=== PATIENT | female | born 1935 | race American Indian/Alaskan Native ===

== ENCOUNTER 2023-02-27 21:25 | Inpatient (IN) | payer MEDICARE, MEDICAID ==
[2023-02-27] MEDS ORDERED: Lactated Ringers 1,000 ML IV STA (21:54)
[2023-02-27] MEDS ORDERED: Ondansetron 4 MG Tab.DIS PO PRN (21:54)
[2023-02-27] MEDS ORDERED: Polyethylene Glycol 3350 Powder 17 GM Packet PO PRN (21:54)
[2023-02-27] MEDS ORDERED: Docusate Sodium 100 MG Cap PO PRN (21:54)
[2023-02-27] MEDS ORDERED: Acetaminophen 325 MG Tab PO PRN (21:54)
[2023-02-27] MEDS ORDERED: Potassium Chloride 10 MEQ Tab.ER PO ONE (22:03)
[2023-02-27] MEDS ORDERED: diphenhydrAMINE 25 MG Cap PO PRN (22:27)
[2023-02-27] MEDS ORDERED: cefTRIAXone 1 GM Vial IVPUSH SCH (22:30)
[2023-02-27] MEDS: Menthol/Zinc Oxide Ointment 113 GM Tube TOP SCH (23:05)
[2023-02-28] MEDS: Pantoprazole 40 MG Tab.CR PO SCH (07:11)
[2023-02-28 07:46] LABS: BASOPHILS ABSOLUTE AUTO 0.02 10^3/uL (0.00-0.50); BASOPHILS PERCENT AUTO 0.3 % (0-1); EOSINOPHILS ABSOLUTE AUTO 0.13 10^3/uL (0.00-1.50); EOSINOPHILS PERCENT AUTO 1.8 % (0-6); HEMATOCRIT 29.1 % (37.0-47.0); HEMOGLOBIN 9.2 g/dL (12.0-16.0); IMMATURE GRAN ABSOLUTE AUTO 0.02 10^3/uL (0.00-0.49); IMMATURE GRAN PERCENT AUTO 0.3 % (0.0-4.9); LYMPHOCYTES PERCENT AUTO 18.4 % (24-44); MEAN CORPUSCULAR HEMOGLOBIN 29.7 pg (27.0-32.0); MEAN CORPUSCULAR HGB CONC 31.6 g/dL (32.0-36.0); MEAN CORPUSCULAR VOLUME 93.9 fL (83.0-97.0); MONOCYTES ABSOLUTE AUTO 0.68 10^3/uL (0.00-1.50); MONOCYTES PERCENT AUTO 9.6 % (0-10); NEUTROPHILS ABSOLUTE AUTO 4.93 x10^3/uL (1.80-8.00); NEUTROPHILS PERCENT AUTO 69.6 % (41-71); PLATELET COUNT,PLT 210 10^3/uL (150-400); WHITE BLOOD CELL COUNT,WBC 7.1 10^3/uL (4.0-11.0)
[2023-02-28 08:00] LABS: BILIRUBIN TOTAL 0.4 mg/dL (0.0-1.0); CALCIUM 8.1 mg/dL (8.4-10.1); EST CRCL DRUG DOSING (CG) 34.23 mL/min; MAGNESIUM 1.6 mg/dL (1.8-2.4); POTASSIUM,K 3.3 mEq/L (3.5-5.0); PROTEIN TOTAL,TP 5.1 g/dL (6.4-8.2)
[2023-02-28] MEDS: Potassium Chloride 10 MEQ Tab.ER PO SCH ×2 (08:04→17:38)
[2023-02-28] MEDS: Cholecalciferol (Vitamin D3) 25 MCG Tab PO SCH (08:04)
[2023-02-28] MEDS: Menthol/Zinc Oxide Ointment 113 GM Tube TOP SCH ×2 (08:05→19:35)
[2023-02-28] MEDS: Multivitamin Tab PO SCH (08:05)
[2023-02-28] MEDS ORDERED: Magnesium Sulfate/Water 2 GM in Premix Bag 1 BAG IV ONE (11:15)
[2023-02-28] MEDS ORDERED: Albumin 25% 25 GM in Premix Bag 1 BAG IV ONE (12:00)
[2023-02-28] MEDS: atorvaSTATin 20 MG Tab PO SCH (19:31)
[2023-02-28] MEDS: cefTRIAXone 1 GM Vial IVPUSH SCH (21:16)
[2023-03-01 07:45] LABS: CALCIUM 7.9 mg/dL (8.4-10.1); CREATININE 1.1 mg/dL (0.6-1.0); EST CRCL DRUG DOSING (CG) 31.11 mL/min; MAGNESIUM 1.9 mg/dL (1.8-2.4)
[2023-03-01 07:46] LABS: BASOPHILS ABSOLUTE AUTO 0.03 10^3/uL (0.00-0.50); BASOPHILS PERCENT AUTO 0.4 % (0-1); EOSINOPHILS ABSOLUTE AUTO 0.12 10^3/uL (0.00-1.50); EOSINOPHILS PERCENT AUTO 1.5 % (0-6); HEMATOCRIT 28.8 % (37.0-47.0); HEMOGLOBIN 9.2 g/dL (12.0-16.0); IMMATURE GRAN ABSOLUTE AUTO 0.02 10^3/uL (0.00-0.49); IMMATURE GRAN PERCENT AUTO 0.2 % (0.0-4.9); LYMPHOCYTES PERCENT AUTO 16.1 % (24-44); MEAN CORPUSCULAR HEMOGLOBIN 30.1 pg (27.0-32.0); MEAN CORPUSCULAR HGB CONC 31.9 g/dL (32.0-36.0); MEAN CORPUSCULAR VOLUME 94.1 fL (83.0-97.0); MONOCYTES ABSOLUTE AUTO 0.72 10^3/uL (0.00-1.50); MONOCYTES PERCENT AUTO 8.9 % (0-10); NEUTROPHILS ABSOLUTE AUTO 5.88 x10^3/uL (1.80-8.00); NEUTROPHILS PERCENT AUTO 72.9 % (41-71); PLATELET COUNT,PLT 210 10^3/uL (150-400); RED BLOOD CELL COUNT 3.06 x10^6/uL (4.00-5.50); WHITE BLOOD CELL COUNT,WBC 8.1 10^3/uL (4.0-11.0)
[2023-03-01] MEDS: Potassium Chloride 10 MEQ Tab.ER PO SCH ×2 (07:58→17:34)
[2023-03-01] MEDS: Multivitamin Tab PO SCH (07:59)
[2023-03-01] MEDS: Pantoprazole 40 MG Tab.CR PO SCH (07:59)
[2023-03-01] MEDS: Cholecalciferol (Vitamin D3) 25 MCG Tab PO SCH (07:59)
[2023-03-01] MEDS: Menthol/Zinc Oxide Ointment 113 GM Tube TOP SCH ×2 (08:00→19:34)
[2023-03-01] MEDS: Calcium Acetate 667 MG Cap PO SCH (17:34)
[2023-03-01] MEDS: atorvaSTATin 20 MG Tab PO SCH (19:34)
[2023-03-01] MEDS: cefTRIAXone 1 GM Vial IVPUSH SCH (20:17)
[2023-03-02] MEDS: Pantoprazole 40 MG Tab.CR PO SCH (06:49)
[2023-03-02 07:27] LABS: BASOPHILS ABSOLUTE AUTO 0.01 10^3/uL (0.00-0.50); BASOPHILS PERCENT AUTO 0.2 % (0-1); EOSINOPHILS ABSOLUTE AUTO 0.18 10^3/uL (0.00-1.50); EOSINOPHILS PERCENT AUTO 2.8 % (0-6); HEMATOCRIT 29.1 % (37.0-47.0); HEMOGLOBIN 9.2 g/dL (12.0-16.0); IMMATURE GRAN ABSOLUTE AUTO 0.03 10^3/uL (0.00-0.49); IMMATURE GRAN PERCENT AUTO 0.5 % (0.0-4.9); LYMPHOCYTES ABSOLUTE AUTO 1.33 10^3/uL (0.60-5.00); LYMPHOCYTES PERCENT AUTO 20.7 % (24-44); MEAN CORPUSCULAR HEMOGLOBIN 29.9 pg (27.0-32.0); MEAN CORPUSCULAR HGB CONC 31.6 g/dL (32.0-36.0); MEAN CORPUSCULAR VOLUME 94.5 fL (83.0-97.0); MONOCYTES ABSOLUTE AUTO 0.48 10^3/uL (0.00-1.50); MONOCYTES PERCENT AUTO 7.5 % (0-10); NEUTROPHILS ABSOLUTE AUTO 4.39 x10^3/uL (1.80-8.00); NEUTROPHILS PERCENT AUTO 68.3 % (41-71); PLATELET COUNT,PLT 183 10^3/uL (150-400); RED BLOOD CELL COUNT 3.08 x10^6/uL (4.00-5.50); WHITE BLOOD CELL COUNT,WBC 6.4 10^3/uL (4.0-11.0)
[2023-03-02 07:39] LABS: CALCIUM 8.1 mg/dL (8.4-10.1); CREATININE 0.9 mg/dL (0.6-1.0); EST CRCL DRUG DOSING (CG) 38.03 mL/min; MAGNESIUM 1.7 mg/dL (1.8-2.4); POTASSIUM,K 4.2 mEq/L (3.5-5.0)
[2023-03-02] MEDS: Menthol/Zinc Oxide Ointment 113 GM Tube TOP SCH (08:05)
[2023-03-02] MEDS: Potassium Chloride 10 MEQ Tab.ER PO SCH (08:27)
[2023-03-02] MEDS: Cholecalciferol (Vitamin D3) 25 MCG Tab PO SCH (08:28)
[2023-03-02] MEDS: Calcium Acetate 667 MG Cap PO SCH (08:29)
[2023-03-02] MEDS: Multivitamin Tab PO SCH (08:30)
[2023-03-02 10:30] VITALS: BP 122/66; PULSE 85
[2023-03-02 10:58] LABS: APPEARANCE,URINE SLIGHTLY CLOUDY (CLEAR); BILIRUBIN,URINE NEGATIVE (NEGATIVE); COLOR,URINE YELLOW (YELLOW); GLUCOSE,URINE NEGATIVE (NEGATIVE); KETONES,URINE NEGATIVE (NEGATIVE); LEUKOCYTE ESTERASE,URINE LARGE (NEGATIVE); NITRITE,URINE NEGATIVE (NEGATIVE); OCCULT BLOOD,URINE SMALL (NEGATIVE); PROTEIN,URINE NEGATIVE (NEGATIVE); UROBILINOGEN,URINE 0.2 EU/dL (0.2-1.0)
[2023-03-02 11:12] LABS: BACTERIA,URINE FEW /HPF (NOT SEEN); EPITHELIAL CELLS,URINE FEW /HPF (NOT SEEN); MUCUS,URINE OCCASIONAL /HPF (NOT SEEN); WBC,URINE 40-50 /HPF (0-5)
[2023-03-02] MEDS ORDERED: Nystatin Topical Powder 15 GM Bottle TOP SCH (20:00)
== END 2023-03-02 16:24 | disposition swing bed (61) | DRG 641 ==
LOC: UNDOADMIN 21:25 → CC.MS 21:25
PROVIDERS: ADMIT Nurse Practitioner; ATTEND Nurse Practitioner
DX: E87.0 Hyperosmolality and hypernatremia (principal); N30.01 Acute cystitis with hematuria; E87.6 Hypokalemia; E86.0 Dehydration; E87.8 Other disorders of electrolyte and fluid balance, not elsewhere classified; G89.29 Other chronic pain; M54.50 Low back pain, unspecified; I10 Essential (primary) hypertension; H54.7 Unspecified visual loss; R62.7 Adult failure to thrive; E11.9 Type 2 diabetes mellitus without complications; J44.9 Chronic obstructive pulmonary disease, unspecified; Z86.73 Personal history of transient ischemic attack (TIA), and cerebral infarction without residual deficits; Z79.899 Other long term (current) drug therapy; Z68.24 Body mass index [BMI] 24.0-24.9, adult
CPT/HCPCS: 36415; 80048; 80053; 81001; 83735; 85025; 87086; 97110-GP; 97161-GP; 99223; 99232; 99233; 99238; A9270-GY; J0696; J3475; J7120

== ENCOUNTER 2023-03-02 16:36 | Inpatient (IN) | payer MEDICARE, MEDICAID ==
[2023-03-02] MEDS ORDERED: Polyethylene Glycol 3350 Powder 17 GM Packet PO PRN (16:43)
[2023-03-02] MEDS ORDERED: Ondansetron 4 MG Tab.DIS PO PRN (16:43)
[2023-03-02] MEDS ORDERED: Docusate Sodium 100 MG Cap PO PRN (16:43)
[2023-03-02] MEDS: Calcium Acetate 667 MG Cap PO SCH (18:38)
[2023-03-02] MEDS: Potassium Chloride 10 MEQ Tab.ER PO SCH (18:39)
[2023-03-02] MEDS: Menthol/Zinc Oxide Ointment 113 GM Tube TOP SCH (19:43)
[2023-03-02] MEDS: atorvaSTATin 20 MG Tab PO SCH (19:44)
[2023-03-02] MEDS: Nystatin Topical Powder 15 GM Bottle TOP SCH (19:44)
[2023-03-02] MEDS: cefTRIAXone 1 GM Vial IVPUSH SCH (20:08)
[2023-03-03] MEDS: Pantoprazole 40 MG Tab.CR PO SCH (06:01)
[2023-03-03] MEDS: Cholecalciferol (Vitamin D3) 25 MCG Tab PO SCH (07:50)
[2023-03-03] MEDS: Potassium Chloride 10 MEQ Tab.ER PO SCH ×2 (07:50→20:01)
[2023-03-03] MEDS: Multivitamin Tab PO SCH (07:50)
[2023-03-03] MEDS: Calcium Acetate 667 MG Cap PO SCH ×2 (07:50→20:00)
[2023-03-03] MEDS: Docusate Sodium 100 MG Cap PO SCH ×2 (07:51→20:00)
[2023-03-03] MEDS: Menthol/Zinc Oxide Ointment 113 GM Tube TOP SCH ×2 (07:54→20:04)
[2023-03-03] MEDS: Nystatin Topical Powder 15 GM Bottle TOP SCH ×2 (07:54→20:03)
[2023-03-03] MEDS: atorvaSTATin 20 MG Tab PO SCH (20:00)
[2023-03-03] MEDS: cefTRIAXone 1 GM Vial IVPUSH SCH (20:33)
[2023-03-04] MEDS: Pantoprazole 40 MG Tab.CR PO SCH (06:41)
[2023-03-04] MEDS: Potassium Chloride 10 MEQ Tab.ER PO SCH ×2 (08:02→17:29)
[2023-03-04] MEDS: Multivitamin Tab PO SCH (08:03)
[2023-03-04] MEDS: Cholecalciferol (Vitamin D3) 25 MCG Tab PO SCH (08:03)
[2023-03-04] MEDS: Calcium Acetate 667 MG Cap PO SCH ×2 (08:03→17:29)
[2023-03-04] MEDS: Docusate Sodium 100 MG Cap PO SCH ×2 (08:03→19:26)
[2023-03-04] MEDS: Menthol/Zinc Oxide Ointment 113 GM Tube TOP SCH ×2 (08:04→19:29)
[2023-03-04] MEDS: Nystatin Topical Powder 15 GM Bottle TOP SCH ×2 (08:04→19:29)
[2023-03-04] MEDS: atorvaSTATin 20 MG Tab PO SCH (19:26)
[2023-03-04] MEDS: cefTRIAXone 1 GM Vial IVPUSH SCH (20:28)
[2023-03-05] MEDS: Pantoprazole 40 MG Tab.CR PO SCH (06:54)
[2023-03-05] MEDS: Docusate Sodium 100 MG Cap PO SCH ×2 (07:42→19:27)
[2023-03-05] MEDS: Calcium Acetate 667 MG Cap PO SCH ×2 (07:42→18:06)
[2023-03-05] MEDS: Multivitamin Tab PO SCH (07:42)
[2023-03-05] MEDS: Cholecalciferol (Vitamin D3) 25 MCG Tab PO SCH (07:42)
[2023-03-05] MEDS: Potassium Chloride 10 MEQ Tab.ER PO SCH ×2 (07:42→18:05)
[2023-03-05] MEDS: Nystatin Topical Powder 15 GM Bottle TOP SCH ×2 (07:43→19:46)
[2023-03-05] MEDS: Menthol/Zinc Oxide Ointment 113 GM Tube TOP SCH ×2 (07:43→19:46)
[2023-03-05] MEDS: atorvaSTATin 20 MG Tab PO SCH (19:27)
[2023-03-05] MEDS: cefTRIAXone 1 GM Vial IVPUSH SCH (20:49)
[2023-03-05] MEDS: diphenhydrAMINE 25 MG Cap PO PRN (21:24)
[2023-03-05] MEDS: Acetaminophen 325 MG Tab PO PRN (21:24)
[2023-03-06] MEDS: Pantoprazole 40 MG Tab.CR PO SCH (06:22)
[2023-03-06] MEDS: Potassium Chloride 10 MEQ Tab.ER PO SCH ×2 (08:07→17:53)
[2023-03-06] MEDS: Calcium Acetate 667 MG Cap PO SCH ×2 (08:07→17:52)
[2023-03-06] MEDS: Cholecalciferol (Vitamin D3) 25 MCG Tab PO SCH (08:07)
[2023-03-06] MEDS: Docusate Sodium 100 MG Cap PO SCH ×2 (08:08→19:42)
[2023-03-06] MEDS: Multivitamin Tab PO SCH (08:08)
[2023-03-06] MEDS: Menthol/Zinc Oxide Ointment 113 GM Tube TOP SCH ×2 (08:14→19:46)
[2023-03-06] MEDS: Nystatin Topical Powder 15 GM Bottle TOP SCH ×2 (08:14→19:46)
[2023-03-06] MEDS: atorvaSTATin 20 MG Tab PO SCH (19:42)
[2023-03-06] MEDS: cefTRIAXone 1 GM Vial IVPUSH SCH (20:30)
[2023-03-06] MEDS: Acetaminophen 325 MG Tab PO PRN (21:13)
[2023-03-06] MEDS: diphenhydrAMINE 25 MG Cap PO PRN (21:13)
[2023-03-07] MEDS: Pantoprazole 40 MG Tab.CR PO SCH (06:47)
[2023-03-07 07:35] LABS: BASOPHILS ABSOLUTE AUTO 0.02 10^3/uL (0.00-0.50); BASOPHILS PERCENT AUTO 0.3 % (0-1); EOSINOPHILS ABSOLUTE AUTO 0.21 10^3/uL (0.00-1.50); HEMATOCRIT 28.8 % (37.0-47.0); HEMOGLOBIN 9.1 g/dL (12.0-16.0); IMMATURE GRAN ABSOLUTE AUTO 0.02 10^3/uL (0.00-0.49); IMMATURE GRAN PERCENT AUTO 0.3 % (0.0-4.9); LYMPHOCYTES ABSOLUTE AUTO 1.57 10^3/uL (0.60-5.00); LYMPHOCYTES PERCENT AUTO 22.6 % (24-44); MEAN CORPUSCULAR HGB CONC 31.6 g/dL (32.0-36.0); MONOCYTES ABSOLUTE AUTO 0.62 10^3/uL (0.00-1.50); MONOCYTES PERCENT AUTO 8.9 % (0-10); NEUTROPHILS PERCENT AUTO 64.9 % (41-71); PLATELET COUNT,PLT 190 10^3/uL (150-400); RED BLOOD CELL COUNT 3.03 x10^6/uL (4.00-5.50); WHITE BLOOD CELL COUNT,WBC 6.9 10^3/uL (4.0-11.0)
[2023-03-07 07:49] LABS: ALBUMIN 1.8 g/dL (3.4-5.0); BILIRUBIN TOTAL 0.2 mg/dL (0.0-1.0); CALCIUM 8.1 mg/dL (8.4-10.1); CREATININE 1.2 mg/dL (0.6-1.0); EST CRCL DRUG DOSING (CG) 28.52 mL/min; MAGNESIUM 1.5 mg/dL (1.8-2.4); POTASSIUM,K 5.4 mEq/L (3.5-5.0); PROTEIN TOTAL,TP 4.9 g/dL (6.4-8.2)
[2023-03-07] MEDS: Calcium Acetate 667 MG Cap PO SCH ×2 (08:11→17:52)
[2023-03-07] MEDS: Cholecalciferol (Vitamin D3) 25 MCG Tab PO SCH (08:11)
[2023-03-07] MEDS: Potassium Chloride 10 MEQ Tab.ER PO SCH ×2 (08:11→08:14)
[2023-03-07] MEDS: Menthol/Zinc Oxide Ointment 113 GM Tube TOP SCH ×2 (08:11→19:28)
[2023-03-07] MEDS: Multivitamin Tab PO SCH (08:11)
[2023-03-07] MEDS: Docusate Sodium 100 MG Cap PO SCH ×2 (08:11→19:27)
[2023-03-07] MEDS: Nystatin Topical Powder 15 GM Bottle TOP SCH ×2 (08:12→19:28)
[2023-03-07] MEDS: atorvaSTATin 20 MG Tab PO SCH (19:27)
[2023-03-07] MEDS: cefTRIAXone 1 GM Vial IVPUSH SCH (20:31)
[2023-03-08] MEDS: Pantoprazole 40 MG Tab.CR PO SCH (06:13)
[2023-03-08] MEDS: Docusate Sodium 100 MG Cap PO SCH (07:45)
[2023-03-08] MEDS: Calcium Acetate 667 MG Cap PO SCH (07:45)
[2023-03-08] MEDS: Cholecalciferol (Vitamin D3) 25 MCG Tab PO SCH (07:45)
[2023-03-08] MEDS: Multivitamin Tab PO SCH (07:45)
[2023-03-08 07:48] LABS: CALCIUM 8.3 mg/dL (8.4-10.1); CREATININE 1.2 mg/dL (0.6-1.0); EST CRCL DRUG DOSING (CG) 28.52 mL/min; MAGNESIUM 1.7 mg/dL (1.8-2.4)
[2023-03-08] MEDS: Nystatin Topical Powder 15 GM Bottle TOP SCH (07:52)
[2023-03-08] MEDS: Menthol/Zinc Oxide Ointment 113 GM Tube TOP SCH (07:53)
[2023-03-08] MEDS ORDERED: Potassium Chloride 10 MEQ Tab.ER PO SCH (08:00)
[2023-03-08 08:16] LABS: POTASSIUM,K 5.1 mEq/L (3.5-5.0)
[2023-03-08 08:26] VITALS: BP 111/49; PULSE 77
== END 2023-03-08 10:15 | DRG 690 ==
LOC: UNDOADMIN 16:36 → CC.MS 16:36
PROVIDERS: ADMIT Nurse Practitioner; ATTEND Nurse Practitioner
DX: N30.01 Acute cystitis with hematuria (principal); E87.0 Hyperosmolality and hypernatremia; E87.6 Hypokalemia; E86.0 Dehydration; E83.51 Hypocalcemia; E83.42 Hypomagnesemia; G89.29 Other chronic pain; M54.50 Low back pain, unspecified; R62.7 Adult failure to thrive; Z79.899 Other long term (current) drug therapy
CPT/HCPCS: 36415; 80048; 80053; 83735; 85025; 97110-GP; 99307; 99316; A9270-GY; J0696; U0002